=== PATIENT | female | born 1980 | race African-American/Black ===

== ENCOUNTER 2017-08-26 21:41 | Emergency (ER) | payer MEDICAID ==
[~2017-08-26] VITALS: Ht 162.6 cm; Wt 52.2 kg
--- NOTE | 2017-08-26 21:58 | NUR ---
PT AMBULATORY TO ER BED 16. PT BIB FAMILY STATING HAD A + PREG TEST A FEW WEEKS AGO AND NOW SPOTTING. PT PLACED IN GOWN AND ON LATEXER. VSS/RESP EVEN UNLABORED/NAD NOTED/SKIN WARM AND DRY/DENIES N-V-D/AFEBRILE/AOX4. AWAITING MD CHAVES.
--- NOTE | 2017-08-26 22:05 | NUR ---
URINE SPECIMEN OBTAINED AND SENT TO THE LAB.
[2017-08-26 23:04] LABS: BASOPHILS % (AUTO) 0.4 % (0.0-2.0); EOSINOPHILS # (AUTO) 0.1 /CMM (0.0-0.7); EOSINOPHILS % (AUTO) 2.3 % (0.0-6.0); HEMATOCRIT 36 % (33-45); HEMOGLOBIN 12.6 g/dL (11.5-14.8); LYMPHOCYTES # (AUTO) 1.4 /CMM (0.8-4.8); MEAN CORPUSCULAR HEMOGLOBIN 30 PG (26.0-33.0); MEAN CORPUSCULAR HGB CONC 35 g/dl (31.0-36.0); MEAN CORPUSCULAR VOLUME 87 fL (82-100); MONOCYTES # (AUTO) 0.5 /CMM (0.1-1.30); MONOCYTES % (AUTO) 9.3 % (2.0-12.0); PLATELET COUNT (AUTO) 239 /CMM (150-450); RDW COEFFICIENT OF VARIATION 14.6 (11.5-15.0); RED BLOOD CELL COUNT(AUTO) 4.16 MIL/uL (4.0-5.2)
[2017-08-26 23:26] LABS: CALCIUM, SERUM 8.9 mg/dL (8.5-10.1); CREATININE 0.6 mg/dL (0.6-1.3); POTASSIUM 4.1 mmol/L (3.5-5.1)
--- NOTE | 2017-08-26 23:30 | NUR ---
ULTRASOUND AT BEDSIDE.
[2017-08-27 00:11] LABS: ALBUMIN 3.6 g/dL (3.4-5.0); BILIRUBIN,DIRECT 0.2 mg/dL (0.0-0.2); BILIRUBIN,TOTAL 0.4 mg/dL (0.2-1.0); TOTAL PROTEIN, SERUM 7.4 g/dL (6.4-8.2)
--- NOTE | 2017-08-27 00:55 | NUR ---
DR. BRIDGETTE ALFARO. TRANSFERRED TO DR. CASTILLO
--- NOTE | 2017-08-27 01:15 | NUR ---
Patient discharged to home in stable condition. Written and verbal after care instructions given. Patient verbalizes understanding of instruction. Patient ambulatory with a steady gait.
[2017-08-27 01:16] VITALS: BP 127/69
== END 2017-08-27 01:17 | disposition home or self-care (01) ==
LOC: ER 21:47
DX: O03.9 Complete or unspecified spontaneous abortion without complication (principal); F31.9 Bipolar disorder, unspecified; F17.200 Nicotine dependence, unspecified, uncomplicated
CPT/HCPCS: 36415; 76856; 80048; 80076; 84702; 85025; 86850; 99285; A4606; Z7610

== ENCOUNTER 2017-09-22 11:05 | Emergency (ER) | payer MEDICAID ==
[~2017-09-22] VITALS: Ht 165.1 cm; Wt 61.2 kg
[2017-09-22 11:13] VITALS: BP 125/89
== END 2017-09-22 15:10 | disposition left against medical advice (07) ==
LOC: ER 11:06
DX: N93.9 Abnormal uterine and vaginal bleeding, unspecified (principal); Z53.21 Procedure and treatment not carried out due to patient leaving prior to being seen by health care provider; F17.200 Nicotine dependence, unspecified, uncomplicated; F31.9 Bipolar disorder, unspecified
CPT/HCPCS: A4606; Z7610